=== PATIENT | male | born 1995 | race Caucasian/White ===

== ENCOUNTER 2019-03-27 12:26 | Emergency (ER) | payer OTHER ==
[~2019-03-27] VITALS: Ht 182.9 cm; Wt 111.2 kg
[2019-03-27] MEDS ORDERED: ONDANSETRON 4 MG ORAL DISINTEGRATING TAB (Q0162 PER 1MG) PO ONE (13:00)
[2019-03-27 13:45] LABS: INFLUENZA A AMPLIFICATION NEGATIVE (NEGATIVE); INFLUENZA B AMPLIFICATION NEGATIVE (NEGATIVE)
[2019-03-27] MEDS ORDERED: ONDA4TAB6 PO (13:52)
[2019-03-27 14:07] VITALS: BP 122/59
== END 2019-03-27 14:08 | disposition home or self-care (01) ==
LOC: M ED 12:26
DX: R11.2 Nausea with vomiting, unspecified (principal); R19.7 Diarrhea, unspecified; Z88.8 Allergy status to other drugs, medicaments and biological substances
CPT/HCPCS: 87502; 99283; Q0162

== ENCOUNTER 2023-09-25 13:07 | Emergency (ER) | payer SELFPAY, BC ==
[~2023-09-25] VITALS: Ht 182.9 cm; Wt 119.6 kg
[2023-09-25 13:07] VITALS: TEMP 98.2; O2SAT 99
[~2023-09-25 13:07] MED LIST: ONDA-282 PO
[2023-09-25 13:14] VITALS: BP 144/79
[2023-09-25] MEDS ORDERED: BUPR150T12 (13:15)
== END 2023-09-25 14:53 | disposition home or self-care (01) ==
LOC: M ED 13:07
DX: S81.812A Laceration without foreign body, left lower leg, initial encounter (principal); W01.198A Fall on same level from slipping, tripping and stumbling with subsequent striking against other object, initial encounter; F10.10 Alcohol abuse, uncomplicated; Y92.828 Other wilderness area as the place of occurrence of the external cause; Y93.11 Activity, swimming; Y99.9 Unspecified external cause status; Z88.8 Allergy status to other drugs, medicaments and biological substances; Z79.899 Other long term (current) drug therapy